=== PATIENT | male | born 1995 | race Two or more races ===

== ENCOUNTER 2018-09-08 08:36 | Day surgery (SDC) | payer OTHER ==
[2018-09-08] MEDS ORDERED: OXYC1TAB9 PO (19:26)
[2018-09-08] MEDS ORDERED: DUI500 PO (19:26)
== END 2018-09-08 22:45 | disposition home or self-care (01) ==
LOC: CIR.AMB 08:36
DX: S43.431A Superior glenoid labrum lesion of right shoulder, initial encounter (principal)